=== PATIENT | male | born 1985 | race Caucasian/White ===

== ENCOUNTER 2024-02-06 16:10 | Emergency (ER) | payer OTHER ==
[~2024-02-06] VITALS: Ht 165.1 cm; Wt 65.8 kg
[2024-02-06 16:20] VITALS: TEMP 97.6
[2024-02-06 17:08] LABS: BASOPHILS % (AUTO) 0.9 % (0.0-2.0); EOSINOPHILS # (AUTO) 0.2 K/uL (0.0-0.7); EOSINOPHILS % (AUTO) 3.8 % (0.0-6.0); HEMATOCRIT 31 % (39-51); HEMOGLOBIN 10.7 g/dL (13.5-17.5); LYMPHOCYTES # (AUTO) 1.6 K/uL (0.8-4.8); LYMPHOCYTES % (AUTO) 32.2 % (20.0-44.0); MEAN CORPUSCULAR HEMOGLOBIN 31 PG (26.0-33.0); MEAN CORPUSCULAR HGB CONC 34 g/dl (31.0-36.0); MEAN CORPUSCULAR VOLUME 92 fL (80-96); MONOCYTES # (AUTO) 0.4 K/uL (0.1-1.30); MONOCYTES % (AUTO) 7.2 % (2.0-12.0); NEUTROPHILS # (AUTO) 2.7 K/uL (1.8-8.9); NEUTROPHILS % (AUTO) 55.9 % (43.0-81.0); PLATELET COUNT (AUTO) 304 K/uL (150-450); RED BLOOD CELL COUNT(AUTO) 3.41 MIL/uL (4.5-6.0); RED CELL DISTRIBUTION WIDTH 14.4 % (11.5-15.0); WHITE BLOOD COUNT (AUTO) 4.9 K/uL (4.3-11.0)
[2024-02-06 17:21] LABS: CALCIUM, SERUM 7.3 mg/dL (8.5-10.1); CARBON DIOXIDE 23 mmol/L (21-32); CHLORIDE 99 mmol/L (98-107); GLUCOSE 168 mg/dL (74-106); SODIUM SERUM 141 mmol/L (136-145); UREA NITROGEN, BLOOD 73 mg/dL (7-18)
[2024-02-06 17:25] LABS: POTASSIUM 5.8 mmol/L (3.5-5.1)
[2024-02-06 17:27] LABS: CREATININE 11.1 mg/dL (0.6-1.3)
[2024-02-06 17:33] LABS: ALANINE AMINOTRANSFERASE 11 U/L (12-78); ALBUMIN 3.5 g/dL (3.4-5.0); ALKALINE PHOSPHATASE 118 U/L (46-116); ASPARTATE AMINOTRANSFERASE 16 U/L (15-37); BILIRUBIN,DIRECT 0.1 mg/dL (0.0-0.2); BILIRUBIN,TOTAL 0.7 mg/dL (0.2-1.0); NT-PRO BNP 4042 pg/mL (0-125); TOTAL PROTEIN, SERUM 7.2 g/dL (6.4-8.2)
[2024-02-06] MEDS ORDERED: SODIUM POLYSTYRENE SULFONATE 15 G/60 ML BOTTLE ONE (17:56)
[2024-02-06] MEDS ORDERED: ALBUTEROL FS 2.5 MG/3 ML VIAL.NEB ONE (18:05)
[2024-02-06] MEDS: SODIUM POLYSTYRENE SULFONATE 15 G/60 ML BOTTLE PO ONE (18:05)
[2024-02-06 18:08] VITALS: O2SAT 98
[2024-02-06] MEDS: ALBUTEROL FS 2.5 MG/3 ML VIAL.NEB NEB ONE (18:08)
[2024-02-06 18:14] VITALS: O2SAT 100
[2024-02-06 19:11] VITALS: BP 120/67; O2SAT 100
== END 2024-02-06 19:04 | disposition home or self-care (01) ==
LOC: ER 16:13
DX: E11.22 Type 2 diabetes mellitus with diabetic chronic kidney disease (principal); N18.6 End stage renal disease; R53.1 Weakness; R06.02 Shortness of breath; Z96.41 Presence of insulin pump (external) (internal); Z99.2 Dependence on renal dialysis; Z20.822 Contact with and (suspected) exposure to COVID-19
CPT/HCPCS: 36415; 71045-TC; 80048-TC; 80076-TC; 82962-TC; 83880; 84484-TC; 85025-TC; 94799-TC